=== PATIENT | female | born 1975 | race Caucasian/White ===

== ENCOUNTER 2017-06-14 05:40 | Day surgery (SDC) | payer BC ==
[2017-06-11 16:42] LABS: BASOPHILS % (AUTO) 0.3 % (0-1); EOSINOPHILS # (AUTO) 0.2 X10'3 (0-0.9); LYMPHOCYTES # (AUTO) 2.4 X10'3 (1.1-4.8); LYMPHOCYTES % (AUTO) 25.6 % (21-51); MEAN CORPUSCULAR HEMOGLOBIN 32.8 PG (27.0-31.0); MEAN CORPUSCULAR VOLUME 96.5 FL (78-98); MEAN PLATELET VOLUME 9.4 FL (7.4-10.4); MONOCYTES # (AUTO) 0.7 X10'3 (0-0.9); MONOCYTES % (AUTO) 7.2 % (2-12); NEUTROPHILS # (AUTO) 6.1 X10'3 (1.8-7.7); NEUTROPHILS % (AUTO) 64.9 % (42-75); PRE OP HEMATOCRIT 43.7 % (35.0-45.0); PRE OP HEMOGLOBIN 14.9 g/dL (12.0-16.0); PRE OP PLATELET COUNT 166 X10'3 (140-440); RED BLOOD COUNT 4.53 X10'6 (4.20-5.60); RED CELL DISTRIBUTION WIDTH 13.5 % (11.5-14.5)
[2017-06-11 16:53] LABS: HCG SERUM QL NEGATIVE
[2017-06-14] VITALS (13 sets, daily range): BP systolic 112–141; BP diastolic 68–89
[~2017-06-14] VITALS: Ht 157.5 cm; Wt 47.5 kg
[~2017-06-14 05:40] MED LIST: NO HOME MEDS; ceFOXitin 2 GM ADDvantage bag 100 ML IV ONE; famotidine 20mg tablet PO ONE; ringers solution, lacted 1,000 ML IV SCH
[2017-06-14] MEDS ORDERED: LIDOcaine 1% (10mg/ml) 2ml vial ONE (06:02)
[2017-06-14] MEDS ORDERED: epiNEPHrine 1 mg/ml inj ONE (06:50)
[2017-06-14] MEDS ORDERED: LIDOcaine 1% 30ml vial 30 ML ONE (06:50)
[2017-06-14] MEDS ORDERED: sevoflurane 250ml liquid IH ONE (07:50)
[2017-06-14] MEDS ORDERED: propofol inj 20 ML IV ONE (07:57)
[2017-06-14] MEDS ORDERED: LIDOcaine 2% (20mg/ml) 5ml vial ONE (07:57)
[2017-06-14] MEDS ORDERED: fentaNYL/PF 50MCG/1 ML 2ML syringe ONE (07:57)
[2017-06-14] MEDS ORDERED: midazolam 2 mg/2 ml injection ONE (07:57)
[2017-06-14] MEDS ORDERED: ringers solution, lacted 1,000 ML IV SCH (08:33)
[2017-06-14] MEDS ORDERED: ondansetron/PF 4mg/2ml inj IV PRN (08:35)
[2017-06-14] MEDS ORDERED: meperidine/PF 25mg/ml syringe IV PRN ×3 (08:35)
[2017-06-14] MEDS ORDERED: proCHLORperazine 10 MG/2 ml inj IV PRN (08:35)
[2017-06-14] MEDS ORDERED: dexamethasone sod phosphate 4mg/ml inj. ONE (09:03)
[2017-06-14] MEDS ORDERED: ketorolac trometh. 30mg/ml inj. ONE (09:04)
[2017-06-14] MEDS ORDERED: oxyCODONE/APAP 5-325mg tablet PO ONE (10:30)
== END 2017-06-14 11:15 | disposition home or self-care (01) ==
LOC: PAS 05:40
PROVIDERS: ATTEND Obstetrics & Gynecology
DX: N84.0 Polyp of corpus uteri (principal); N81.11 Cystocele, midline; N39.3 Stress incontinence (female) (male); N81.10 Cystocele, unspecified; Z98.51 Tubal ligation status; Z72.89 Other problems related to lifestyle; Z98.890 Other specified postprocedural states; Z90.89 Acquired absence of other organs; Z87.891 Personal history of nicotine dependence; Z88.6 Allergy status to analgesic agent
CPT/HCPCS: 36415; 57240; 57288; 58563; 84703; 85025; 86885; 86900; 86901; A4355; A6255; C1758; C1771; J0171; J0694; J1100; J1885; J2001; J2175; J2250; J2405; J2704; J3010; J3490; J7030; J7120; A7000

== ENCOUNTER 2024-01-07 07:46 | Inpatient (IN) | payer BC ==
[~2024-01-07] VITALS: Ht 157.5 cm; Wt 60.0 kg
[~2024-01-07 07:46] MED LIST changes: -ceFOXitin 2 GM ADDvantage bag 100 ML IV ONE; -famotidine 20mg tablet PO ONE; -ringers solution, lacted 1,000 ML IV SCH
[2024-01-07] MEDS ORDERED: iohexol 350MG/ML 100ml bottle IV ONE (08:23)
[2024-01-07 08:26] LABS: BASOPHILS # (AUTO) 0.1 X10'3 (0-0.2); BASOPHILS % (AUTO) 1.5 % (0-1); EOSINOPHILS # (AUTO) 0.2 X10'3 (0-0.9); EOSINOPHILS % (AUTO) 3.7 % (0-6); HEMATOCRIT 45.4 % (35.0-45.0); HEMOGLOBIN 15.2 g/dl (12.0-16.0); LYMPHOCYTES # (AUTO) 1.4 X10'3 (1.1-4.8); LYMPHOCYTES % (AUTO) 26.8 % (21-51); MEAN CORPUSCULAR HEMOGLOBIN 34.4 PG (27.0-31.0); MEAN CORPUSCULAR HGB CONC 33.5 g/dL (33.0-36.5); MEAN CORPUSCULAR VOLUME 102.7 FL (78-98); MEAN PLATELET VOLUME 8.6 FL (7.4-10.4); MONOCYTES # (AUTO) 0.6 X10'3 (0-0.9); MONOCYTES % (AUTO) 10.7 % (2-12); NEUTROPHILS % (AUTO) 57.3 % (42-75); PLATELET COUNT 198 X10'3 (140-440); RED BLOOD COUNT 4.42 X10'6 (4.20-5.60); RED CELL DISTRIBUTION WIDTH 13.4 % (11.5-14.5); WHITE BLOOD COUNT 5.2 X10'3 (4.5-11.0)
[2024-01-07 08:48] LABS: APTT 26 SECONDS (22-32); PROTHROMBIN TIME 10.3 SECONDS (9.0-12.0)
[2024-01-07 11:00] LABS: ALANINE AMINOTRANSFERASE 176 U/L (12-78); ALBUMIN 3.2 G/DL (3.4-5.0); ALBUMIN/GLOBULIN RATIO 0.8 (1.1-1.5); ALKALINE PHOSPHATASE 76 IU/L (46-116); ANION GAP 9 (8-16); ASPARTATE AMINO TRANSFERASE 207 U/L (10-37); BILIRUBIN,TOTAL 0.3 MG/DL (0.1-1.0); BLOOD UREA NITROGEN 5 MG/DL (7-18); CALCIUM 8.2 MG/DL (8.5-10.1); CHLORIDE 105 MMOL/L (99-107); GLUCOSE 83 MG/DL (70-104); POTASSIUM 4.1 MMOL/L (3.5-5.1); SODIUM 138 MMOL/L (135-145); TOTAL CARBON DIOXIDE 24.3 MMOL/L (24-32); TOTAL PROTEIN 7.1 G/DL (6.4-8.2); eCRCL 109 ML/MIN; eGFR > 90 ML/MIN
[2024-01-07] MEDS ORDERED: magnesium sulf-water 4G/100mL 100 ML IV PRN (11:25)
[2024-01-07] MEDS ORDERED: potassium Cl 20 mEq SR tablet PO PRN ×2 (11:25)
[2024-01-07] MEDS ORDERED: magnesium sulf-water 2g/50mL 50 ML IV PRN (11:25)
[2024-01-07] MEDS ORDERED: mag hydrox/Alum hydrox/simeth 30ml oral suspension PO PRN (11:25)
[2024-01-07] MEDS ORDERED: potassium Cl 40MEQ/1/2NS 520ml 520 ML IV PRN (11:25)
[2024-01-07] MEDS ORDERED: magnesium Cl slow-release 64mg tablet PO PRN (11:25)
[2024-01-07] MEDS ORDERED: ondansetron/PF 4mg/2ml inj IV PRN (11:25)
[2024-01-07] MEDS ORDERED: magnesium hydroxide 30ml (MOM) UD suspension PO PRN (11:25)
[2024-01-07] MEDS ORDERED: GADOTERATE MEGLUMINE 7.5 MMOL/15 ML VIAL IV ONE (15:28)
[2024-01-07] MEDS: K and/or MAG REPLACEMENT MC SCH (16:21)
[2024-01-07] MEDS: nicotine 14mg patch - 24hr TD ONE (18:17)
[2024-01-07] MEDS ORDERED: haloperidol 5mg tablet PO PRN (19:20)
[2024-01-07] MEDS ORDERED: LORazepam 2 mg/ml vial IV PRN (19:20)
[2024-01-07] MEDS ORDERED: LORazepam 1 MG tablet PO PRN (19:20)
[2024-01-07 19:35] VITALS: BP 125/82; PULSE 89; RESP 18; TEMP 98.5; O2SAT 100
[2024-01-07 20:00] VITALS: RESP 15; O2SAT 100
[2024-01-07] MEDS: enoxaparin 40mg/0.4ml syringe SQ SCH (20:00)
[2024-01-07] MEDS: docusate sod 100mg capsule PO SCH (20:00)
[2024-01-07] MEDS: folic acid 1mg tablet PO SCH (20:20)
[2024-01-07] MEDS: thiamine 100mg tablet PO SCH (20:20)
[2024-01-07 22:40] VITALS: BP 118/79; PULSE 72; RESP 13; TEMP 98.4; O2SAT 99
[2024-01-08] MEDS: acetaminophen 325mg tablet PO PRN (05:09)
[2024-01-08 06:00] VITALS: BP 144/87; PULSE 76; RESP 12; TEMP 97.9; O2SAT 97
[2024-01-08 07:36] LABS: BASOPHILS % (AUTO) 0.7 % (0-1); EOSINOPHILS # (AUTO) 0.3 X10'3 (0-0.9); EOSINOPHILS % (AUTO) 4.1 % (0-6); HEMOGLOBIN 14.6 g/dl (12.0-16.0); LYMPHOCYTES # (AUTO) 1.5 X10'3 (1.1-4.8); MEAN CORPUSCULAR HEMOGLOBIN 34.7 PG (27.0-31.0); MEAN CORPUSCULAR VOLUME 102.3 FL (78-98); MEAN PLATELET VOLUME 9.4 FL (7.4-10.4); MONOCYTES # (AUTO) 0.8 X10'3 (0-0.9); MONOCYTES % (AUTO) 13.3 % (2-12); NEUTROPHILS # (AUTO) 3.6 X10'3 (1.8-7.7); NEUTROPHILS % (AUTO) 57.9 % (42-75); PLATELET COUNT 178 X10'3 (140-440); RED CELL DISTRIBUTION WIDTH 13.2 % (11.5-14.5); WHITE BLOOD COUNT 6.2 X10'3 (4.5-11.0)
[2024-01-08 07:57] LABS: ALANINE AMINOTRANSFERASE 159 U/L (12-78); ALBUMIN 3.1 G/DL (3.4-5.0); ALBUMIN/GLOBULIN RATIO 0.8 (1.1-1.5); ALKALINE PHOSPHATASE 76 IU/L (46-116); ANION GAP 9 (8-16); ASPARTATE AMINO TRANSFERASE 145 U/L (10-37); BILIRUBIN,TOTAL 0.7 MG/DL (0.1-1.0); BLOOD UREA NITROGEN 7 MG/DL (7-18); BUN/CREATININE RATIO 10.4 (10.0-20.0); CHLORIDE 101 MMOL/L (99-107); CHOL/HDL RATIO 2.2 (0.00-4.99); CHOLESTEROL 198 MG/DL (0-200); CREATININE 0.67 MG/DL (0.40-0.90); GLUCOSE 100 MG/DL (70-104); HDL CHOLESTEROL 91 MG/DL (35-60); LDL CHOLESTEROL 86 MG/DL (50-100); MAGNESIUM 1.9 MG/DL (1.5-2.4); POTASSIUM 3.6 MMOL/L (3.5-5.1); SODIUM 135 MMOL/L (135-145); TOTAL CARBON DIOXIDE 25.5 MMOL/L (24-32); TOTAL PROTEIN 6.9 G/DL (6.4-8.2); TRIGLYCERIDES 55 MG/DL (20-135); eCRCL 81 ML/MIN; eGFR > 90 ML/MIN
[2024-01-08 08:00] VITALS: RESP 12; O2SAT 97
[2024-01-08 10:00] VITALS: BP 144/69; PULSE 110; RESP 17; TEMP 98.7; O2SAT 93
[2024-01-08] MEDS ORDERED: THIA100T70 PO (12:50)
[2024-01-08] MEDS ORDERED: FOLI1TAB27 PO (12:50)
== END 2024-01-08 13:42 | disposition home or self-care (01) | DRG 74 ==
LOC: ER 07:47 → ED HOLD 11:35 → EDBEDREQ 13:55 → ORTHO 4S 19:29
PROVIDERS: ADMIT Family Medicine; ATTEND Family Medicine
PROC: B3251ZZ Computerized Tomography (CT Scan) of Bilateral Common Carotid Arteries using Low Osmolar Contrast (ICD-10-PCS; principal; 2024-01-07)
PROC: B32G1ZZ Computerized Tomography (CT Scan) of Bilateral Vertebral Arteries using Low Osmolar Contrast (ICD-10-PCS; 2024-01-07)
PROC: B32R1ZZ Computerized Tomography (CT Scan) of Intracranial Arteries using Low Osmolar Contrast (ICD-10-PCS; 2024-01-07)
PROC: B3281ZZ Computerized Tomography (CT Scan) of Bilateral Internal Carotid Arteries using Low Osmolar Contrast (ICD-10-PCS; 2024-01-07)
DX: G56.32 Lesion of radial nerve, left upper limb (principal); F17.210 Nicotine dependence, cigarettes, uncomplicated; M50.31 Other cervical disc degeneration, high cervical region; M50.221 Other cervical disc displacement at C4-C5 level; Z88.5 Allergy status to narcotic agent; Z88.8 Allergy status to other drugs, medicaments and biological substances; Z98.51 Tubal ligation status; Z90.710 Acquired absence of both cervix and uterus; Z80.8 Family history of malignant neoplasm of other organs or systems; Z82.49 Family history of ischemic heart disease and other diseases of the circulatory system; Z71.6 Tobacco abuse counseling
CPT/HCPCS: 36415; 70450; 70496; 70498; 70553; 71045; 72156; 80053; 80061; 83735; 85025; 85610; 85730; 86885; 86900; 86901; 87081; 93005; 97110; 97161; 99285; A9575; G0378; Q9967